=== PATIENT | male | born 2000 | race African-American/Black ===

== ENCOUNTER 2022-07-31 01:47 | Emergency (ER) | payer MEDICAID, OTHER ==
[~2022-07-31] VITALS: Ht 177.8 cm; Wt 63.6 kg
[2022-07-31 02:32] LABS: Basophils # (auto) 0.1 10 ^3/uL (0-0.2); Basophils % (auto) 0.9 % (0.0-2.0); Eosinophils # (auto) 0.3 10 ^3/uL (0-0.8); Eosinophils % (auto) 2.9 % (0.0-7.0); Hematocrit 45.1 % (41.0-53.0); Hemoglobin 15.2 g/dL (13.5-17.5); Lymphocytes # (auto) 3.7 10 ^3/uL (0.4-5.4); Lymphocytes % (auto) 40.6 % (10.0-50.0); Mean Corpuscular Hemoglobin 31.1 pg (28.0-32.0); Mean Corpuscular Hgb Conc. 33.7 g/dL (32.0-36.0); Mean Corpuscular Volume 92.3 fL (80.0-100.0); Monocytes # (auto) 0.6 10 ^3/uL (0-1.3); Monocytes % (auto) 6.4 % (0.0-12.0); Neutrophils # (auto) 4.4 10 ^3/uL (1.6-8.6); Neutrophils % (auto) 49.2 % (37.0-80.0); Nucleated Red Blood Cells % 0.2 %; Red Blood Cells 4.88 10^6/uL (4.5-5.90); Red Cell Distribution Width 12.4 % (11.8-14.3)
[2022-07-31 02:48] LABS: INR 1.02 (0.9-1.15); Partial Thromboplastin Time 26.8 sec (24.6-33.4)
[2022-07-31 02:50] LABS: Albumin 4.2 g/dL (3.4-5.0); BUN/Creatinine Ratio 9.8; Magnesium 2.1 mg/dL (1.6-2.6); Potassium 3.4 mmol/L (3.5-5.1)
[2022-07-31 02:52] LABS: Bilirubin, Total 0.6 mg/dL (0.2-1.0)
[2022-07-31 03:50] VITALS: BP 124/86
== END 2022-07-31 03:51 | disposition home or self-care (01) ==
LOC: ER 01:49
DX: R00.2 Palpitations (principal); Z79.899 Other long term (current) drug therapy
CPT/HCPCS: 36415; 71045; 80053; 83735; 83880; 84484; 85025; 85610; 85730; 93005